=== PATIENT | male | born 2000 | race Two or more races ===

== ENCOUNTER 2024-12-28 16:01 | Emergency (ER) | payer OTHER ==
[~2024-12-28] VITALS: Ht 170.2 cm; Wt 65.0 kg
[2024-12-28 16:54] VITALS: BP 108/66; PULSE 104; RESP 18; TEMP 98.2; O2SAT 99
== END 2024-12-29 | disposition home or self-care (01) ==
LOC: EMS 16:05
DX: S09.90XA Unspecified injury of head, initial encounter (principal); Y04.0XXA Assault by unarmed brawl or fight, initial encounter; Y93.89 Activity, other specified; Y92.89 Other specified places as the place of occurrence of the external cause; Y99.8 Other external cause status
CPT/HCPCS: 70450; 72125; 99284